=== PATIENT | female | born 1985 | race Caucasian/White ===

== ENCOUNTER → 2018-10-26 09:09 | Outpatient (CLI) | payer OTHER, MEDICAID, SELFPAY ==
[2018-10-26 11:02] LABS: Follicle Stimulating Hormone 2.02 mIU/mL; Luteinizing Hormone 3.93 mIU/mL
[2018-10-29 13:48] LABS: Insulin Level Total 7.4 uIU/mL (2.0-19.6)
== END ==
PROVIDERS: PCP Obstetrics & Gynecology; Visit Provider Family Medicine
DX: E28.2 Polycystic ovarian syndrome (principal)
CPT/HCPCS: 36415; 83001; 83002; 83525; 84439; 84443

== ENCOUNTER → 2018-11-14 09:21 | Outpatient (CLI) | payer OTHER, MEDICAID, SELFPAY ==
[2018-11-14 10:52] LABS: Glucose 85 mg/dL (70-100)
== END ==
PROVIDERS: PCP Obstetrics & Gynecology; Visit Provider Obstetrics & Gynecology
DX: E28.2 Polycystic ovarian syndrome (principal)
CPT/HCPCS: 36415; 82947